=== PATIENT | female | born 1950 | race Caucasian/White ===

== ENCOUNTER 2017-06-15 08:00 | Outpatient (CLI) | payer MEDICARE ==
[2017-06-15 13:09] LABS: BASOPHILS % (AUTO) 0.5 %; EOSINOPHILS # (AUTO) 0.1 10^3/uL (0.0-0.7); EOSINOPHILS % (AUTO) 2.6 %; HCT - HEMATOCRIT 41.7 % (37.0-47.0); HGB - HEMOGLOBIN 14.1 g/dL (12.0-16.0); LYMPHOCYTES % (AUTO) 39.8 %; MEAN CORPUSCULAR HEMOGLOBIN 31.8 pg (27.0-31.0); MEAN CORPUSCULAR HGB CONC 33.9 g/dL (32.0-36.0); MEAN CORPUSCULAR VOLUME 93.9 fL (81.0-99.0); MEAN PLATELET VOLUME 7.9 fL (7.9-10.8); MONOCYTES # (AUTO) 0.4 10^3/uL (0.0-1.0); NEUTROPHILS # (AUTO) 2.4 10^3/uL (1.5-6.6); NEUTROPHILS % (AUTO) 49.1 %; NUCLEATED RED BLOOD CELLS AUTO 0.1 /100WBC; RED BLOOD COUNT 4.45 10^6/uL (4.20-5.40); RED CELL DISTRIBUTION WIDTH 13.3 % (12.0-15.0)
[2017-06-15 13:38] LABS: ALBUMIN/GLOBULIN RATIO 1.8 (1.0-2.2); BILIRUBIN,TOTAL 1.6 mg/dL (0.2-1.0); BUN - BLOOD UREA NITROGEN 12 mg/dL (6-20); CALCIUM 9.2 mg/dL (8.5-10.3); CARBON DIOXIDE - CO2 31 mmol/L (21-32); CHLORIDE 96 mmol/L (101-111); CHOL/HDL RATIO 2.1 (<4.4); CHOLESTEROL 190 mg/dL; CREATININE 0.6 mg/dL (0.4-1.0); GFR - MDRD 99 (>89); GLUCOSE 87 mg/dL (70-100); HDL CHOLESTEROL 89 mg/dL; LDL/HDL RATIO 0.9 (<4.4); POTASSIUM 3.6 mmol/L (3.5-5.0); SODIUM 134 mmol/L (135-145); TOTAL PROTEIN 7.1 g/dL (6.7-8.2); TRIGLYCERIDES 84 mg/dL; VLDL CHOLESTEROL 17 mg/dL
== END 2017-06-15 08:01 | disposition home or self-care (01) ==
LOC: LAB.R 08:00
PROVIDERS: ATTEND Physician Assistant Medical
DX: Z00.00 Encounter for general adult medical examination without abnormal findings (principal); R73.9 Hyperglycemia, unspecified; E78.2 Mixed hyperlipidemia; Z72.89 Other problems related to lifestyle; Z79.899 Other long term (current) drug therapy
CPT/HCPCS: 80053; 80061; 84443; 85025; 86803

== ENCOUNTER 2017-06-28 10:19 | Outpatient (CLI) | payer MEDICARE ==
--- NOTE | 2017-06-29 18:41 | Mammography Report ---
DIGITAL SCREENING MAMMOGRAM: 06/28/2017 CLINICAL INDICATION: A 67-year-old for screening. COMPARISON: 03/2015, 05/2013, 12/2011, 12/2010, 11/2008, 11/2007. TECHNIQUE: Routine CC and MLO projections were obtained of the breasts. FINDINGS: The breasts demonstrate scattered fibroglandular densities bilaterally. Coarse and puncta te, typically benign calcifications are present. No suspicious masses, clustered microcalcifications , or regions of architectural distortion are identified. IMPRESSION: BENIGN FINDINGS. RECOMMENDATION: Routine annual screening unless otherwise clinically indicated. BI-RADS category 2, benign findings. STANDARD QUALIFYING STATEMENTS 1. This examination was reviewed with the aid of Computer-Aided Detection (CAD). 2. A negative or benign imaging report should not delay biopsy if clinically suspicious findings are present. Consider surgical consultation if warranted. More than 5% of cancers are not identified by i maging. 3. Dense breasts may obscure an underlying neoplasm. JOB #: [id number] EXT JOB #:[id number]
== END 2017-06-28 10:20 | disposition home or self-care (01) ==
LOC: DI 10:19
PROVIDERS: ATTEND Physician Assistant Medical
DX: Z12.31 Encounter for screening mammogram for malignant neoplasm of breast (principal)
CPT/HCPCS: 77067

== ENCOUNTER 2017-12-17 22:36 | Emergency (ER) | payer MEDICARE ==
[2017-12-17] MEDS ORDERED: SODIUM CHLORIDE 0.9% 1,000 ML IV ONE (23:08)
[2017-12-17 23:27] LABS: BASOPHILS # (AUTO) 0.1 10^3/uL (0.0-0.1); BASOPHILS % (AUTO) 0.8 %; EOSINOPHILS % (AUTO) 0.2 %; HGB - HEMOGLOBIN 15.3 g/dL (12.0-16.0); LYMPHOCYTES # (AUTO) 1.7 10^3/uL (1.5-3.5); LYMPHOCYTES % (AUTO) 14.2 %; MEAN CORPUSCULAR HEMOGLOBIN 31.8 pg (27.0-31.0); MEAN CORPUSCULAR HGB CONC 34.3 g/dL (32.0-36.0); MEAN CORPUSCULAR VOLUME 92.6 fL (81.0-99.0); MEAN PLATELET VOLUME 6.9 fL (7.9-10.8); MONOCYTES # (AUTO) 0.7 10^3/uL (0.0-1.0); MONOCYTES % (AUTO) 5.7 %; NEUTROPHILS # (AUTO) 9.2 10^3/uL (1.5-6.6); NEUTROPHILS % (AUTO) 79.1 %; PLT - PLATELET COUNT 275 10^3/uL (130-450); RED BLOOD COUNT 4.82 10^6/uL (4.20-5.40); WHITE BLOOD COUNT 11.7 x10^3/uL (4.8-10.8)
[2017-12-17 23:38] LABS: ALBUMIN 4.4 g/dL (3.2-5.5); ALBUMIN/GLOBULIN RATIO 1.7 (1.0-2.2); BILIRUBIN,TOTAL 1.9 mg/dL (0.2-1.0); CALCIUM 9.3 mg/dL (8.5-10.3); CREATININE 0.6 mg/dL (0.4-1.0)
[2017-12-17] MEDS ORDERED: POTASSIUM CHLORIDE 20 MEQ TABLET PO STA (23:55)
--- NOTE | 2017-12-18 00:04 | ED Physician Documentation ---
PD HPI GI BLEED - Stated complaint Stated Complaint: FEMALE - Chief complaint Chief Complaint: Abd Pain - History obtained from History obtained from: Patient, Family (spouse) - History of Present Illness Timing - onset: How many hours ago (1) Associated symptoms: BRBPR Similar symptoms before: Has not had sx before - Additional information Additional information: The patient is a 67-year-old female who presents with bright red blood per rectum. She first noticed it about 1 hour prior to arrival with she had pink tinged stool after dinner. She then had an episode of bright red blood dripping into the commode. She denies any associated abdominal or rectal pain. She denies lightheadedness or fever. She has no history of similar symptoms in the past. Review of her medical record reveals resection of 2 benign rectal polyps in 2016. Review of Systems Constitutional: denies: Fever Nose: denies: Congestion Throat: denies: Sore throat Cardiac: denies: Chest pain / pressure Respiratory: denies: Dyspnea, Cough GI: reports: Bloody / black stool. denies: Abdominal Pain, Nausea, Vomiting : denies: Dysuria Skin: denies: Rash Musculoskeletal: denies: Back pain Neurologic: denies: Headache PD PAST MEDICAL HISTORY - Past Medical History Past Medical History: Yes Cardiovascular: Hypertension, High cholesterol Endocrine/Autoimmune: None GI: Other (Rectal polyps.) Other Past Medical History: Meniere disease - Past Surgical History Past Surgical History: No - Present Medications Home Medications: Ambulatory Orders Medication Instructions Recorded Confirmed Aspirin [Aspir 81] 81 mg PO DAILY 06/09/13 09/28/16 Calcium [Calcio Giorgi] 500 mg PO DAILY 06/09/13 09/29/16 Hydrochlorothiazide 25 mg PO DAILY 06/09/13 09/29/16 Ubidecarenone [Co Q-10] 10 mg PO DAILY 06/09/13 09/29/16 Atorvastatin Calcium [Lipitor] 40 mg PO DAILY 09/28/16 09/29/16 Hydrocortisone Acetate [Anucort-Hc] 25 mg RC BID PRN #10 supp.rect 12/18/17 Potassium Chloride 10 meq PO DAILY #20 tablet.er 12/18/17 - Allergies Allergies/Adverse Reactions: Allergies Allergy/AdvReac Type Severity Reaction Status Date / Time Sulfa (Sulfonamide Allergy Intermediate Rash Verified 12/17/17 22:44 Antibiotics) - Social History Does the pt smoke?: No Smoking Status: Never smoker Does the pt drink ETOH?: No Does the pt have substance abuse?: No - POLST Patient has POLST: No PD ED PE NORMAL - Vitals Vital signs reviewed: Yes (Mild hypertension initially.) - General General: Alert and oriented X 3, Well developed/nourished - HEENT HEENT: Atraumatic, Moist mucous membranes, Pharynx benign - Neck Neck: No adenopathy, No JVD - Cardiac Cardiac: RRR, No murmur - Respiratory Respiratory: No respiratory distress, Clear bilaterally - Abdomen Abdomen: Soft, Non tender, No organomegaly - Rectal Rectal: Other (Bright red blood on examining finger, without stool. No anal tenderness and no external hemorrhoid.) - Back Back: No CVA TTP - Derm Derm: No rash - Extremities Extremities: No edema, No calf tenderness / cord - Neuro Neuro: Alert and oriented X 3, No motor deficit, Normal speech PD ED PE EXPANDED - Rectal Rectal: Heme Occult Pos - QC +, Normal Tone Results - Vitals Vitals: Vital Signs - 24 hr 12/17/17 12/18/17 12/18/17 22:39 00:30 00:31 Temperature 36.2 C L Heart Rate 106 H 110 H 92 Respiratory 18 18 16 Rate Blood Pressure 144/92 H 165/87 H 131/75 H O2 Saturation 97 96 Oxygen O2 Source Room air - Labs Labs: Laboratory Tests 12/17/17 12/17/17 23:15 23:15 WBC 11.7 H RBC 4.82 Hgb 15.3 Hct 44.6 MCV 92.6 MCH 31.8 H MCHC 34.3 RDW 13.0 Plt Count 275 MPV 6.9 L Neut # 9.2 H Lymph # 1.7 [place] # 0.7 Eos # 0.0 Baso # 0.1 Absolute Nucleated RBC 0.00 Nucleated RBC % 0.0 Sodium 130 L Potassium 2.8 L Chloride 94 L Carbon Dioxide 24 Anion Gap 12.0 BUN 13 Creatinine 0.6 Estimated GFR (MDRD) 99 Glucose 118 H Calcium 9.3 Total Bilirubin 1.9 H AST 23 ALT 24 Alkaline Phosphatase 85 Total Protein 7.0 Albumin 4.4 Globulin 2.6 Albumin/Globulin Ratio 1.7 Lipase 29 PD MEDICAL DECISION MAKING - ED course Complexity details: reviewed old records, reviewed results, re-evaluated patient , considered differential, d/w patient, d/w family ED course: The patient's presentation is significant for bright red blood per rectum, most likely caused by internal hemorrhoid. The possibility of recurrent rectal polyp is a remaining consideration. Her presentation does not suggest diverticular hemorrhage or an upper GI bleed. Her hemoglobin and hematocrit are normal at 15.3 and 44.6. In addition her chemistry panel reveals hypokalemia with a potassium of 2.8. This is likely caused by her diuretic medication, hydrochlorothiazide. Treatment in the emergency department included administration of normal saline IV, and supplemental potassium, 20 mEq orally. She is being discharged with a prescription for Anusol HC and for supplemental potassium. I discussed with her and her the diagnosis, the importance of outpatient follow-up, as well as potentially worrisome signs or symptoms that should prompt reevaluation in the emergency department. Departure - Departure Disposition: 01 Home, Self Care Clinical Impression: Internal hemorrhoid, bleeding, Hypokalemia Condition: Stable Instructions: ED Hemorrhoids Follow-Up: Bhavana Jimenes PA-C [Primary Care Provider] - Prescriptions: Hydrocortisone Acetate [Anucort-Hc] 25 mg RC BID PRN #10 supp.rect PRN Reason: Rectal Discomfort Potassium Chloride 10 meq PO DAILY #20 tablet.er Comments: Use stool softener, such as milk of magnesia 30 mL daily for the next week. You can use Anusol as prescribed if needed for rectal discomfort. Take supplemental potassium daily as prescribed. Follow up with your primary physician within 1-2 weeks. Call to schedule an appointment. Return to the emergency department if you develop increasing rectal bleeding, lightheadedness, abdominal pain, or otherwise worsening symptoms. Discharge Date/Time: 12/18/17 00:25
[2017-12-18 00:31] VITALS: BP 131/75
== END 2017-12-18 00:25 | disposition home or self-care (01) ==
LOC: ED 22:36
DX: K64.8 Other hemorrhoids (principal); E87.6 Hypokalemia; I10 Essential (primary) hypertension; E78.00 Pure hypercholesterolemia, unspecified
CPT/HCPCS: 36415; 80053; 83690; 85025; 99283; A9270

== ENCOUNTER 2018-01-01 08:00 | Outpatient (CLI) | payer MEDICARE ==
[2018-01-01 15:08] LABS: CREATININE 0.5 mg/dL (0.4-1.0)
== END 2018-01-01 08:01 | disposition home or self-care (01) ==
LOC: LAB.R 08:00
PROVIDERS: ATTEND Internal Medicine
DX: E87.6 Hypokalemia (principal); Z79.899 Other long term (current) drug therapy
CPT/HCPCS: 80048

== ENCOUNTER 2018-02-12 08:00 | Outpatient (CLI) | payer MEDICARE ==
[2018-02-12 13:19] LABS: CALCIUM 9.1 mg/dL (8.5-10.3); CREATININE 0.5 mg/dL (0.4-1.0)
== END 2018-02-12 08:01 ==
LOC: LAB.R 08:00
PROVIDERS: ATTEND Physician Assistant Medical
DX: E87.6 Hypokalemia (principal)
CPT/HCPCS: 80048

== ENCOUNTER 2018-02-26 09:05 | Outpatient (CLI) | payer MEDICARE ==
[2018-02-26 15:37] LABS: CALCIUM 8.9 mg/dL (8.5-10.3)
[2018-02-26 15:44] LABS: CREATININE 0.6 mg/dL (0.4-1.0)
== END 2018-02-26 09:06 | disposition home or self-care (01) ==
LOC: LAB.R 09:05
PROVIDERS: ATTEND Physician Assistant Medical
DX: E87.6 Hypokalemia (principal); Z79.899 Other long term (current) drug therapy
CPT/HCPCS: 80048

== ENCOUNTER 2018-03-20 08:00 | Outpatient (CLI) | payer MEDICARE ==
[2018-03-20 15:36] LABS: CALCIUM 8.8 mg/dL (8.5-10.3); CREATININE 0.5 mg/dL (0.4-1.0)
== END 2018-03-20 08:01 ==
LOC: LAB.R 08:00
PROVIDERS: ATTEND Physician Assistant Medical
DX: E87.6 Hypokalemia (principal); E87.1 Hypo-osmolality and hyponatremia; Z79.899 Other long term (current) drug therapy
CPT/HCPCS: 80048

== ENCOUNTER 2018-04-25 14:30 | Outpatient (CLI) | payer MEDICARE | END 2018-04-25 14:31 | disposition home or self-care (01) | LOC: LAB.R 14:30 | PROVIDERS: ATTEND Physician Assistant Medical | DX: N30.00 Acute cystitis without hematuria (principal) | CPT/HCPCS: 87086 ==

== ENCOUNTER 2018-06-19 08:07 | Outpatient (CLI) | payer MEDICARE ==
[2018-06-19 13:48] LABS: BASOPHILS % (AUTO) 0.7 %; EOSINOPHILS # (AUTO) 0.1 10^3/uL (0.0-0.7); EOSINOPHILS % (AUTO) 2.5 %; HGB - HEMOGLOBIN 13.9 g/dL (12.0-16.0); LYMPHOCYTES # (AUTO) 1.6 10^3/uL (1.5-3.5); LYMPHOCYTES % (AUTO) 34.4 %; MEAN CORPUSCULAR HEMOGLOBIN 32.3 pg (27.0-31.0); MEAN CORPUSCULAR HGB CONC 33.9 g/dL (32.0-36.0); MEAN CORPUSCULAR VOLUME 95.2 fL (81.0-99.0); MEAN PLATELET VOLUME 7.7 fL (7.9-10.8); MONOCYTES # (AUTO) 0.4 10^3/uL (0.0-1.0); MONOCYTES % (AUTO) 8.6 %; NEUTROPHILS # (AUTO) 2.5 10^3/uL (1.5-6.6); NEUTROPHILS % (AUTO) 53.8 %; PLT - PLATELET COUNT 271 10^3/uL (130-450); RED BLOOD COUNT 4.31 10^6/uL (4.20-5.40); RED CELL DISTRIBUTION WIDTH 12.7 % (12.0-15.0); WHITE BLOOD COUNT 4.7 x10^3/uL (4.8-10.8)
[2018-06-19 14:06] LABS: ALBUMIN 4.3 g/dL (3.2-5.5); ALBUMIN/GLOBULIN RATIO 1.7 (1.0-2.2); ALKALINE PHOSPHATASE 72 IU/L (42-121); ALT ALANINE AMINOTRANSFERASE 20 IU/L (10-60); AST ASPARTATE AMINOTRANSFERASE 21 IU/L (10-42); BUN - BLOOD UREA NITROGEN 13 mg/dL (6-20); CALCIUM 9.3 mg/dL (8.5-10.3); CARBON DIOXIDE - CO2 30 mmol/L (21-32); CHLORIDE 98 mmol/L (101-111); CHOL/HDL RATIO 2.2 (<4.4); CHOLESTEROL 182 mg/dL; CREATININE 0.6 mg/dL (0.4-1.0); GFR - MDRD 99 (>89); GLUCOSE 90 mg/dL (70-100); HDL CHOLESTEROL 84 mg/dL; LDL CHOLESTEROL,CALCULATED 82 mg/dL; SODIUM 135 mmol/L (135-145); TOTAL PROTEIN 6.9 g/dL (6.7-8.2); VLDL CHOLESTEROL 16 mg/dL
== END 2018-06-19 08:08 ==
LOC: LAB.R 08:07
PROVIDERS: ATTEND Physician Assistant Medical
DX: N30.00 Acute cystitis without hematuria (principal); Z79.899 Other long term (current) drug therapy; E78.2 Mixed hyperlipidemia; I10 Essential (primary) hypertension; M85.80 Other specified disorders of bone density and structure, unspecified site; K59.09 Other constipation
CPT/HCPCS: 80053; 80061; 82306; 83721; 84443; 85025

== ENCOUNTER 2018-07-06 08:53 | Outpatient (CLI) | payer MEDICARE ==
--- NOTE | 2018-07-06 12:27 | Ultrasound Report ---
Reason: POSTMENOPAUSA, ELEVATED TOTAL BILIRUBIN Procedure Date: 07/06/2018 Accession Number: [id number] / [id number] Procedure: US - Abdomen Limited CPT Code: FULL RESULT: EXAM: ABDOMEN ULTRASOUND LIMITED, RUQ EXAM DATE: 07/06/2018 10:20 AM. CLINICAL HISTORY: POSTMENOPAUSAL, ELEVATED TOTAL BILIRUBIN. COMPARISON: None. TECHNIQUE: Real-time scanning was performed with static images obtained. FINDINGS: Liver: Normal in size and echotexture. 13.4 cm. Main portal vein flow: Hepatopetal. Gallbladder: No stones, wall thickening, or sonographic Yang's sign. Biliary System: CBD measures 5.2 mm. No intrahepatic or extrahepatic ductal dilatation. Free fluid: None. Right kidney: 10.4 cm longitudinally. No hydronephrosis. Other: Question lymph node/mass superior to the right kidney between the spine and liver measuring approximately 2.8 x 2.1 x 2.8 cm. IMPRESSION: No cholelithiasis or cholecystitis. Question prominent lymph node superior to the right kidney between the spine and liver. Consider further evaluation by abdomen CT with contrast. RADIA
--- NOTE | 2018-07-10 10:37 | DEXA Report ---
Reason: POSTMENOPAUSA, ELEVATED TOTAL BILIRUBIN Procedure Date: 07/06/2018 Accession Number: [id number] / [id number] Procedure: DEX - Dexa Spine and/or Hip CPT Code: FULL RESULT: EXAM: Dexa Spine and/or Hip DATE: 07/06/2018 9:18 AM CLINICAL HISTORY: POSTMENOPAUSAL, ELEVATED TOTAL BILIRUBIN TECHNIQUE: Dual energy x-ray absorptiometry (DXA) was performed on a [employer]gen[employer] System. Regions measured are the AP Spine, femoral neck, and if needed forearm. COMPARISON: 07/07/2016 DEXA In accordance with the International Society for Clinical Densitometry (ISCD) guidelines, data from previous exams may be reanalyzed using current recommendations and techniques. This is done to allow a more accurate basis for comparison with the current study. FINDINGS: The data for the lumbar spine is as follows: BMD (g/cm/cm) T-SCORE Z-SCORE REGION L1 0.963 -1.4 0.5 L2 1.007 -1.6 0.3 L3 1.140 -0.5 1.4 L4 TOTAL 1.041 -1.1 0.8 NOTE: All evaluable vertebrae are used for classification The data for the hip is as follows: BMD (g/cm/cm) T-SCORE Z-SCORE REGION Neck 0.870 -1.2 0.6 TOTAL 0.849 -1.3 0.4 NOTE: The femoral neck or total proximal femur, whichever is lowest, is used for classification. DXA RESULTS SUMMARY: Spine SCAN DATE AGE BMD CHANGE VS CHANGE VS PREVIOUS PREVIOUS % 07[birth year]06/2018 [age] 1.041 0.008 0.8 07/07/2016 66.1 1.033 * Denotes significant change at the 95% confidence level. Denotes dissimilar scan types or analysis methods. DXA RESULTS SUMMARY: Hip SCAN DATE AGE BMD CHANGE VS CHANGE VS PREVIOUS PREVIOUS % [birth year]06/2018 68.1 0.849 -0.002 -0.2 07/07/2016 66.1 0.851 * Denotes significant change at the 95% confidence level. Denotes dissimilar scan types or analysis methods. IMPRESSION: THE WHO CLASSIFICATION BASED ON THE INTERNATIONAL REFERENCE STANDARD IS OSTEOPENIA. THE FRACTURE RISK IS INCREASED. RECOMMENDATION: Patients with diagnosis of osteoporosis or osteopenia should have regular bone mineral density assessment. For those eligible for Medicare, routine testing is allowed once every 2 years. Testing frequency can be increased for patients who have rapidly progressing disease or for those who are receiving medical therapy to restore bone mass. COMMENT: World Health Organization (WHO) definitions for osteoporosis and osteopenia: NORMAL BMD: T-score at -1.0 or higher, fracture risk is low OSTEOPENIA BMD: T-score between -1.0 and -2.5, fracture risk is increased. OSTEOPOROSIS BMD: T-score at -2.5 or lower, fracture risk is high. National Osteoporosis Foundation recommends: 1. Obtain adequate dietary calcium (at least 1200 mg per day) and vitamin D (400-800 international units per day). 2. Participate, as appropriate, in regular weightbearing and muscle-strengthening exercise. 3. Avoid tobacco use and reduce alcohol and caffeine intake. 4. For more detailed information see the website at www.NOF.org.
== END 2018-07-06 08:54 | disposition home or self-care (01) ==
LOC: DI 08:53
PROVIDERS: ATTEND Physician Assistant Medical
DX: M85.89 Other specified disorders of bone density and structure, multiple sites (principal); R17 Unspecified jaundice
CPT/HCPCS: 76705; 77080

== ENCOUNTER 2018-07-11 10:45 | Outpatient (CLI) | payer MEDICARE ==
[2018-07-11] MEDS ORDERED: IOPAMIDOL-300 50 ML VIAL ONE (10:55)
[2018-07-11] MEDS ORDERED: IOPAMIDOL-300 100 ML VIAL ONE (10:55)
[2018-07-11] MEDS ORDERED: IOPAMIDOL-300 100 ML VIAL IVP ONE (12:18)
[2018-07-11] MEDS ORDERED: IOPAMIDOL-300 50 ML VIAL PO ONE (12:18)
--- NOTE | 2018-07-11 12:59 | CT Report ---
Reason: ABNORMAL ABDOMINAL ULTRASOUND,ELEVATED TOTAL BILIR Procedure Date: 07/11/2018 Accession Number: [id number] / [id number] Procedure: CT - Abdomen/Pelvis W/ CPT Code: FULL RESULT: EXAM: CT ABDOMEN AND PELVIS EXAM DATE: 07/11/2018 12:16 PM. CLINICAL HISTORY: ABNORMAL ABDOMINAL ULTRASOUND,ELEVATED TOTAL BILI. COMPARISONS: None. TECHNIQUE: Routine helical CT imaging was performed through the abdomen and pelvis. IV contrast: ISOVUE 300 100mL. Enteric contrast: No. Reconstructions: Coronal and sagittal. In accordance with CT protocol optimization, one or more of the following dose reduction techniques were utilized for this exam: automated exposure control, adjustment of mA and/or KV based on patient size, or use of iterative reconstructive technique. FINDINGS: Lung Bases: Unremarkable. Liver: Normal contour. No masses. Gallbladder/Bile Ducts: Unremarkable. Spleen: Normal. Splenule is noted. Pancreas: Normal. Adrenal Glands: Right adrenal nodule 2.1 x 1.8 cm axially. Kidneys: Normal. No masses or hydronephrosis. Peritoneal Cavity/Bowel: Normal. No free fluid, free air or adenopathy. No masses or acute inflammatory process. The appendix is mostly visualized and has a normal CT appearance. Pelvic Organs: Uterine calcifications, likely calcified fibroid.. The bladder and visualized pelvic organs appear otherwise within normal limits. Vasculature: No aneurysms or other significant abnormality. Bones: No significant abnormality. Other: None. IMPRESSION: Right adrenal nodule likely accounts for the abnormal ultrasound findings. It is incompletely characterized. Recommend adrenal protocol CT. Note to the scanning biotechnologist: Begin with noncontrast adrenal or abdomen CT, with radiologist call regarding decision for additional adrenal protocol. RADIA
== END 2018-07-11 10:46 | disposition home or self-care (01) ==
LOC: DI 10:45
PROVIDERS: ATTEND Physician Assistant Medical
DX: E27.9 Disorder of adrenal gland, unspecified (principal)
CPT/HCPCS: 74177; Q9967

== ENCOUNTER 2018-07-17 07:40 | Outpatient (CLI) | payer MEDICARE ==
[2018-07-17] MEDS ORDERED: IOPAMIDOL-300 100 ML VIAL ONE (08:21)
[2018-07-17] MEDS ORDERED: IOPAMIDOL-300 100 ML VIAL IVP ONE (08:46)
--- NOTE | 2018-07-17 14:33 | CT Report ---
Reason: ADRENAL NODULE ON CT, ABN ABD USD Procedure Date: 07/17/2018 Accession Number: [id number] / [id number] Procedure: CT - Abdomen W/WO CPT Code: FULL RESULT: EXAM: CT ABDOMEN WITHOUT AND WITH CONTRAST EXAM DATE: 07/17/2018 08:30 AM. HISTORY: Adrenal nodule on CT. Abnormal abdominal ultrasound. COMPARISON: ABDOMEN/PELVIS W/ 07/11/2018 12:11 PM. TECHNIQUE: Routine helical CT imaging was performed through the abdomen before and after administration of IV contrast: 100 mL Isovue-300. Enteric contrast: No. Reconstruction: Coronal and sagittal. In accordance with CT protocol optimization, one or more of the following dose reduction techniques were utilized for this exam: automated exposure control, adjustment of mA and/or KV based on patient size, or use of iterative reconstructive technique. FINDINGS: Lung Bases: Unremarkable. Liver: Normal. No masses. Gallbladder/Bile Ducts: Unremarkable. Spleen: Normal. Pancreas: Normal. No masses or ductal obstruction. Adrenal Glands: The right adrenal gland nodule demonstrates indeterminate washout criteria by relative and absolute washout formulas. Scant calcification and the suggestion of fat suggest the possibility of adrenal myelolipoma, but the appearance is not typical. The lesion overall remains indeterminate. Left adrenal gland is normal. Kidneys: Normal. No masses or hydronephrosis. Peritoneal Cavity/Bowel: Normal. No free fluid, free air or adenopathy. No masses or acute inflammatory process. Vasculature: No aneurysms or other significant abnormality. Bones: No significant abnormality. Other: None. IMPRESSION: Indeterminate right adrenal mass which does not meet washout criteria for lipid poor adrenal adenoma. Given the suggestion of microscopic fat without typical imaging features of myelolipoma, consider definitive characterization by MRI with in and out of phase imaging. Alternatively, if the patient has no known malignancy or risk factors for malignancy, interval imaging for stability 6 months from now and again every 12 months for a total duration of 2 years to demonstrate stability is also reasonable. RADIA
== END 2018-07-17 07:41 | disposition home or self-care (01) ==
LOC: DI 07:40
PROVIDERS: ATTEND Physician Assistant Medical
DX: E27.9 Disorder of adrenal gland, unspecified (principal)
CPT/HCPCS: 74170; Q9967

== ENCOUNTER 2018-08-10 09:11 | Outpatient (CLI) | payer MEDICARE ==
--- NOTE | 2018-08-10 14:17 | MRI Report ---
Reason: ADRENAL NODULE ON CT, ABN ABD US, ELEVATED TOTAL B Procedure Date: 08/10/2018 Accession Number: [id number] / [id number] Procedure: MRI - Abdomen W/O CPT Code: FULL RESULT: EXAM: MR ABDOMEN WITHOUT CONTRAST (MR ADRENALS) EXAM DATE: 08/10/2018 10:43 AM. CLINICAL HISTORY: ADRENAL NODULE ON CT, ABN ABD US, ELEVATED TOTAL B. COMPARISON: 07/17/2018. TECHNIQUE: Multiplanar breath-hold T1 and T2 sequences obtained through the adrenals and abdomen on an MR scanner. Thin-section, in-phase and yvk-sa-[id number] sequence obtained through the adrenal glands. No intravenous contrast given. FINDINGS: Lung Bases: Unremarkable. Liver: The liver has normal size, morphology and signal. No evidence of mass or biliary dilatation. Gallbladder: The gallbladder is partially distended and appears normal with no wall thickening or stone. Pancreas: The pancreas appears normal with no mass or ductal dilatation. Spleen: The spleen appears normal. Kidneys: The kidneys appear normal with no mass or hydronephrosis. There are no cysts in the kidneys. Adrenals: There is a 1.9 x 1.5 cm nodule in the right adrenal gland. This shows heterogeneous signal intensity on the T2-weighted sequences, intermediate signal intensity on T1-weighted sequences. There is significant signal drop on [id number] sequence consistent with an adenoma. Bowel: The small bowel and colon appear normal with no inflammation or obstruction. Retroperitoneum: The retroperitoneal structures appear normal with no mass or lymphadenopathy. IMPRESSION: The right adrenal nodule contains intralesional fat consistent with a benign adenoma. RADIA
== END 2018-08-10 09:12 | disposition home or self-care (01) ==
LOC: DI 09:11
PROVIDERS: ATTEND Physician Assistant Medical
DX: E27.8 Other specified disorders of adrenal gland (principal); R93.5 Abnormal findings on diagnostic imaging of other abdominal regions, including retroperitoneum; E80.7 Disorder of bilirubin metabolism, unspecified
CPT/HCPCS: 74181

== ENCOUNTER 2019-10-03 08:55 | Outpatient (CLI) | payer MEDICARE ==
[2019-10-03 09:40] LABS: BASOPHILS % (AUTO) 0.7 %; EOSINOPHILS # (AUTO) 0.2 10^3/uL (0.0-0.7); EOSINOPHILS % (AUTO) 3.7 %; HGB - HEMOGLOBIN 14.2 g/dL (12.0-16.0); LYMPHOCYTES # (AUTO) 1.5 10^3/uL (1.5-3.5); LYMPHOCYTES % (AUTO) 32.4 %; MEAN CORPUSCULAR HEMOGLOBIN 31.6 pg (27.0-31.0); MEAN CORPUSCULAR HGB CONC 33.3 g/dL (32.0-36.0); MEAN CORPUSCULAR VOLUME 95.1 fL (81.0-99.0); MEAN PLATELET VOLUME 8.8 fL (7.9-10.8); MONOCYTES # (AUTO) 0.6 10^3/uL (0.0-1.0); NEUTROPHILS # (AUTO) 2.3 10^3/uL (1.5-6.6); NEUTROPHILS % (AUTO) 50.8 %; PLT - PLATELET COUNT 258 10^3/uL (130-450); RED BLOOD COUNT 4.49 10^6/uL (4.20-5.40); RED CELL DISTRIBUTION WIDTH 12.2 % (12.0-15.0); WHITE BLOOD COUNT 4.6 x10^3/uL (4.8-10.8)
[2019-10-03 10:07] LABS: ALBUMIN 4.4 g/dL (3.2-5.5); ALBUMIN/GLOBULIN RATIO 1.6 (1.0-2.2); ALKALINE PHOSPHATASE 85 IU/L (42-121); ALT ALANINE AMINOTRANSFERASE 21 IU/L (10-60); AST ASPARTATE AMINOTRANSFERASE 21 IU/L (10-42); BILIRUBIN,TOTAL 1.4 mg/dL (0.2-1.0); BUN - BLOOD UREA NITROGEN 11 mg/dL (6-20); CALCIUM 9.4 mg/dL (8.5-10.3); CARBON DIOXIDE - CO2 31 mmol/L (21-32); CHLORIDE 100 mmol/L (101-111); CHOL/HDL RATIO 3.1 (<4.4); CHOLESTEROL 156 mg/dL; CREATININE 0.7 mg/dL (0.4-1.0); GFR - MDRD 82 (>89); GLUCOSE 99 mg/dL (70-100); HDL CHOLESTEROL 50 mg/dL; LDL CHOLESTEROL,CALCULATED 79 mg/dL; LDL/HDL RATIO 1.6 (<4.4); SODIUM 139 mmol/L (135-145); TOTAL PROTEIN 7.1 g/dL (6.7-8.2); VLDL CHOLESTEROL 27 mg/dL
[2019-10-03 10:35] LABS: THYROID STIMULATING HORMONE 2.13 uIU/mL (0.34-5.60)
[2019-10-03 10:37] LABS: FREE T4 (FREE THYROXINE) 0.84 ng/dL (0.58-1.64)
== END 2019-10-03 08:56 | disposition home or self-care (01) ==
LOC: LAB 08:55
PROVIDERS: ATTEND Family Medicine
DX: K21.9 Gastro-esophageal reflux disease without esophagitis (principal); K59.09 Other constipation; H81.09 Meniere's disease, unspecified ear; E78.2 Mixed hyperlipidemia; I10 Essential (primary) hypertension
CPT/HCPCS: 36415; 80053; 80061; 83721; 84439; 84443; 84481; 85025

== ENCOUNTER 2019-10-09 08:00 | Outpatient (CLI) | payer MEDICARE | END 2019-10-09 23:59 | disposition home or self-care (01) | LOC: LAB.R 08:00 | PROVIDERS: ATTEND Family Medicine | DX: R30.0 Dysuria (principal) | CPT/HCPCS: 87086 ==

== ENCOUNTER 2019-11-01 13:06 | Outpatient (CLI) | payer MEDICARE ==
--- NOTE | 2019-11-06 13:02 | Mammography Report ---
Reason: ROUTINE MAMMO Procedure Date: 11/01/2019 Accession Number: [id number] / [id number] Procedure: KIM - Screening Mammo w/Uriel CPT Code: Final Report FULL RESULT: EXAM: Screening Mammo w/Uriel DATE: 11/01/2019 1:39 PM CLINICAL HISTORY: The patient is an asymptomatic 69-year-old female. No reported personal nor family history breast cancer. TECHNIQUE: (B) - Bilateral CC and MLO views were obtained. COMPARISON: None PARENCHYMAL PATTERN: (A) - The breasts demonstrate scattered fibroglandular densities bilaterally. FINDINGS: Technical limitations. Suboptimal right breast positioning (CC). Motion artifact left breast (MLO). IMPRESSION: Incomplete examination. BI-RADS category 0. RECOMMENDATION: Bilateral technical repeat. BI-RADS CATEGORY: (0) - Incomplete Examination - need additional evaluation. STANDARD QUALIFYING STATEMENTS: A negative or benign imaging report should not preclude biopsy if clinically suspicious findings are present. Dense breasts may obscure an underlying neoplasm. This examination was reviewed with the aid of 3D breast imaging (tomosynthesis).
== END 2019-11-01 13:07 | disposition home or self-care (01) ==
LOC: DI 13:06
DX: Z12.31 Encounter for screening mammogram for malignant neoplasm of breast (principal)
CPT/HCPCS: 77063; 77067

== ENCOUNTER 2019-12-04 10:25 | Outpatient (CLI) | payer MEDICARE ==
--- NOTE | 2019-12-04 12:45 | Mammography Report ---
Reason: TECH REPEAT - NO CHARGE Procedure Date: 12/04/2019 Accession Number: [id number] / [id number] Procedure: KIM - Screening Mammo w/Uriel CPT Code: Final Report FULL RESULT: EXAM: Screening Mammo w/Uriel DATE: 12/04/2019 11:23 AM CLINICAL HISTORY: Routine screening. Technical repeat. TECHNIQUE: (B) - Bilateral CC and MLO views were obtained. COMPARISON: 11/01/2019, 06/28/2017, 04/17/2015, 06/03/2013, 01/26/2012, 01/18/2011, 01/10/2011 and 12/16/2008. PARENCHYMAL PATTERN: (A) - The breasts demonstrate scattered fibroglandular densities bilaterally. FINDINGS: No significant interval change. There are no suspicious masses, calcifications, or areas of distortion. IMPRESSION: Negative examination. BI-RADS category 1. RECOMMENDATION: (ANNUAL) - Recommend routine annual screening mammography. BI-RADS CATEGORY: (1) - Negative. STANDARD QUALIFYING STATEMENTS: 1. This examination was not reviewed with the aid of Computer-Aided Detection (CAD). 2. A negative or benign imaging report should not preclude biopsy if clinically suspicious findings are present. 3. Dense breasts may obscure an underlying neoplasm. 4. This examination was reviewed with the aid of 3D breast imaging (tomosynthesis).
== END 2019-12-04 10:26 | disposition home or self-care (01) ==
LOC: DI 10:25
DX: Z12.31 Encounter for screening mammogram for malignant neoplasm of breast (principal)
CPT/HCPCS: 77063; 77067

== ENCOUNTER 2020-01-22 09:30 | Outpatient (CLI) | payer MEDICARE | END 2020-01-22 23:59 | disposition home or self-care (01) | LOC: LAB.R 09:30 | PROVIDERS: ATTEND Family Medicine | DX: R30.0 Dysuria (principal) | CPT/HCPCS: 87086; 87181 ==

== ENCOUNTER 2020-06-20 14:12 | Emergency (ER) | payer MEDICARE ==
[2020-06-20 14:25] VITALS: BP 143/67
--- NOTE | 2020-06-20 15:04 | ED Physician Documentation ---
PD HPI LOWER EXT INJURY - Stated complaint Stated Complaint: RT FT INJ - Chief complaint Chief Complaint: Ext Problem - History obtained from History obtained from: Patient, Family - History of Present Illness PD HPI LOW EXT INJURY LOCATION: Right, Foot Type of injury: Blunt / blow Where injury occurred: Home Timing - onset: Today Timing - duration: Minutes Timing - details: Abrupt onset, Still present Improved by: Rest, Immobilization Worsened by: Moving, Palpating Associated symptoms: Swelling, Discolored. No: Weakness, Numbness Contributing factors: No: Anticoagulated Similar symptoms before: Has not had sx before Recently seen: Not recently seen - Additional information Additional information: 70-year-old previously well filled female was with her today when a pallet that was standing on and was dropped it tipped over and landed directly on her right foot. She has pain to the toe and the dorsum of the foot and she is able to bear weight. Review of Systems Constitutional: denies: Fever Eyes: denies: Decreased vision Ears: denies: Ear pain Nose: denies: Congestion Throat: denies: Sore throat Cardiac: denies: Chest pain / pressure Respiratory: denies: Cough GI: denies: Vomiting PD PAST MEDICAL HISTORY - Past Medical History Past Medical History: Yes Cardiovascular: Hypertension, High cholesterol Endocrine/Autoimmune: None GI: Other - Past Surgical History Past Surgical History: No - Present Medications Home Medications: Ambulatory Orders Medication Instructions Recorded Confirmed Aspirin [Aspir 81] 81 mg PO DAILY 06/09/13 09/28/16 Calcium [Calcio Giorgi] 500 mg PO DAILY 06/09/13 09/29/16 Hydrochlorothiazide 25 mg PO DAILY 06/09/13 09/29/16 Ubidecarenone [Co Q-10] 10 mg PO DAILY 06/09/13 09/29/16 Atorvastatin Calcium [Lipitor] 40 mg PO DAILY 09/28/16 09/29/16 Hydrocortisone Acetate [Anucort-Hc] 25 mg RC BID PRN #10 supp.rect 12/18/17 Potassium Chloride 10 meq PO DAILY #20 tablet.er 12/18/17 - Allergies Allergies/Adverse Reactions: Allergies Allergy/AdvReac Type Severity Reaction Status Date / Time Sulfa (Sulfonamide Allergy Intermediate Rash Verified 12/17/17 22:44 Antibiotics) - Social History Does the pt smoke?: No Smoking Status: Never smoker Does the pt drink ETOH?: No Does the pt have substance abuse?: No - POLST Patient has POLST: No PD ED PE NORMAL - Vitals Vital signs reviewed: Yes (Hypertensive mild) - General General: Alert and oriented X 3, No acute distress, Well developed/nourished - HEENT HEENT: Atraumatic, PERRL, EOMI - Respiratory Respiratory: No respiratory distress - Derm Derm: Normal color, Warm and dry, No rash - Extremities Extremities: No deformity, No edema, Other (There is tenderness and swelling over the midshaft of the first metatarsal on the right foot. There is a tiny subungual hematoma at the proximal edge of the nail of the right great toe there is abrasion over the interphalangeal joint of the right great toe. Distally the neurovascular components ar) - Neuro Neuro: Alert and oriented X 3, parking supervisor 2-12 intact, No motor deficit, No sensory deficit, Normal speech Eye Opening: Spontaneous Motor: Obeys Commands Verbal: Oriented GCS Score: 15 - Psych Psych: Normal mood, Normal affect Results - Vitals Vitals: Vital Signs - 24 hr 06/20/20 14:22 Temperature 36.5 C Heart Rate 73 Respiratory 18 Rate Blood Pressure 143/67 H O2 Saturation 98 Oxygen O2 Source Room air - Rads (name of study) foot Radiology: Prelim report reviewed (Impression: Minimally comminuted, mainly transverse fracture of the distal phalanx.), EMP read indepedently, See rad report PD MEDICAL DECISION MAKING - ED course Complexity details: reviewed results, re-evaluated patient, considered differential, d/w patient, d/w family ED course: 70-year-old female with a fracture to the right great toe is placed into a postop shoe with metatarsal padding. Departure - Departure Disposition: 01 Home, Self Care Clinical Impression: Fracture of right great toe Qualifiers: Encounter type: initial encounter Fracture type: closed Phalanx: distal Fracture alignment: nondisplaced Qualified Code(s): S92.424A - Nondisplaced fracture of distal phalanx of right great toe, initial encounter for closed fracture Condition: Stable Instructions: ED Fx Toe Closed Follow-Up: Pablo Barry MD [Primary Care Provider] - Discharge Date/Time: 06/20/20 15:45
--- NOTE | 2020-06-20 16:03 | XRAY Report ---
PROCEDURE: Foot 3 View RT INDICATIONS: contusion to distal 1st MT and toe TECHNIQUE: 3 views of the foot were acquired. COMPARISON: None available FINDINGS: Bones: Comminuted fracture of the first distal phalanx with mainly transverse component. No suspiciou s bony lesions. Soft tissues: No tibiotalar joint effusion. Achilles tendon appears normal. IMPRESSION: Minimally comminuted, mainly transverse fracture of the distal phalanx. Reviewed by: Riya Nelson MD on 06/20/2020 4:01 PM PDT Approved by: Riya Nelson MD on 06/20/2020 4:01 PM PDT Station ID: [id number]
== END 2020-06-20 15:45 | disposition home or self-care (01) ==
LOC: ED 14:12
DX: S92.424A Nondisplaced fracture of distal phalanx of right great toe, initial encounter for closed fracture (principal); S90.411A Abrasion, right great toe, initial encounter; S90.211A Contusion of right great toe with damage to nail, initial encounter; W20.8XXA Other cause of strike by thrown, projected or falling object, initial encounter; Y92.009 Unspecified place in unspecified non-institutional (private) residence as the place of occurrence of the external cause; I10 Essential (primary) hypertension; Z79.82 Long term (current) use of aspirin
CPT/HCPCS: 99282; 99283

== ENCOUNTER 2020-11-25 07:44 | Outpatient (CLI) | payer MEDICARE ==
[2020-11-25 08:38] LABS: ALBUMIN 4.2 g/dL (3.2-5.5); ALBUMIN/GLOBULIN RATIO 1.7 (1.0-2.2); ALKALINE PHOSPHATASE 78 IU/L (42-121); ALT ALANINE AMINOTRANSFERASE 24 IU/L (10-60); AST ASPARTATE AMINOTRANSFERASE 21 IU/L (10-42); BILIRUBIN,TOTAL 1.6 mg/dL (0.2-1.0); BUN - BLOOD UREA NITROGEN 16 mg/dL (6-20); CALCIUM 9.6 mg/dL (8.5-10.3); CARBON DIOXIDE - CO2 28 mmol/L (21-32); CHLORIDE 100 mmol/L (101-111); CHOL/HDL RATIO 2.3 (<4.4); CHOLESTEROL 169 mg/dL; CREATININE 0.7 mg/dL (0.4-1.0); GLUCOSE 107 mg/dL (70-100); HDL CHOLESTEROL 73 mg/dL; LDL CHOLESTEROL,CALCULATED 76 mg/dL; TOTAL PROTEIN 6.7 g/dL (6.7-8.2); VLDL CHOLESTEROL 20 mg/dL
[2020-11-25 08:50] LABS: THYROID STIMULATING HORMONE 2.3 uIU/mL (0.34-5.60)
[2020-11-25 08:52] LABS: FREE T3 2.9 pg/mL (2.5-3.9)
[2020-11-25 08:53] LABS: FREE T4 (FREE THYROXINE) 0.96 ng/dL (0.58-1.64)
[2020-11-25 11:49] LABS: HEMOGLOBIN A1c% 5.5 % (4.27-6.07)
== END 2020-11-25 07:45 | disposition home or self-care (01) ==
LOC: LAB 07:44
PROVIDERS: ATTEND Nurse Practitioner
DX: E78.2 Mixed hyperlipidemia (principal); I10 Essential (primary) hypertension; Z79.899 Other long term (current) drug therapy
CPT/HCPCS: 36415; 80053; 80061; 82043; 82570; 83036; 83721; 84439; 84443; 84481

== ENCOUNTER 2020-11-25 13:47 | Outpatient (CLI) | payer MEDICARE ==
[2020-11-25 14:09] LABS: CREATININE,URINE 28.9 mg/dL; MICROALBUM/CREATININE RATIO,UR 17.3 ug/mg (<30.0); MICROALBUMIN,URINE 0.5 mg/dL (0-300.0)
== END 2020-11-25 13:48 | disposition home or self-care (01) ==
LOC: LAB 13:47
PROVIDERS: ATTEND Nurse Practitioner
DX: E78.2 Mixed hyperlipidemia (principal); I10 Essential (primary) hypertension; Z79.899 Other long term (current) drug therapy; Z12.11 Encounter for screening for malignant neoplasm of colon
CPT/HCPCS: 82043; 82274; 82570

== ENCOUNTER 2021-01-12 12:39 | Outpatient (CLI) | payer MEDICARE ==
--- NOTE | 2021-01-12 17:13 | DEXA Report ---
PROCEDURE: Dexa Spine and/or Hip INDICATIONS: MENOPAUSAL, OSTEOPENIA TECHNIQUE: Dual energy x-ray absorptiometry (DXA) was performed on a [employer] System. Regions measur ed are the AP Spine, femoral neck, and if needed forearm. COMPARISON: None. FINDINGS: Lumbar Spine: Bone Mineral Density 1.025 g/cm/cm,T score -1.2, compared to -1.1 Left Hip: Bone Mineral Density 0.876 g/cm/cm,T score -1.0, compared to -1.3 Left Femoral Neck: Bone Mineral Density 0.859 g/cm/cm, T score -1.3, compared to -1.2 (T score greater or equal to -1.0: NORMAL) (T score from -1.1 to -2.4: OSTEOPENIA) (T score less than or equal to -2.5 to: OSTEOPOROSIS) Impression: Mild osteopenia within the lumbar spine, left hip and femoral neck, relatively stable com pared to prior exam. Patients with diagnosis of osteoporosis or osteopenia should have regular bone mineral density assess ment. For those eligible for Medicare, routine testing is allowed once every 2 years. Testing frequ ency can be increased for patients who have rapidly progressing disease or for those who are receivin g medical therapy to restore bone mass. Reviewed by: Lenka Hernandez MD on 01/12/2021 5:11 PM PDT Approved by: Lenka Hernandez MD on 01/12/2021 5:11 PM PDT Station ID: [id number]
== END 2021-01-12 12:40 | disposition home or self-care (01) ==
LOC: DI 12:39
PROVIDERS: ATTEND Nurse Practitioner
DX: N95.8 Other specified menopausal and perimenopausal disorders (principal); M85.89 Other specified disorders of bone density and structure, multiple sites

== ENCOUNTER 2021-02-19 09:30 | Outpatient (CLI) | payer MEDICARE ==
--- NOTE | 2021-02-22 11:36 | Mammography Report ---
BILATERAL DIGITAL SCREENING MAMMOGRAM 3D/2D: 02/19/2021 CLINICAL: Routine screening. Comparison is made to exams dated: 12/04/2019 mammogram, 11/01/2019 mammogram, 06/28/2017 mammogram, and 04/17/2015 mammogram - [facility]. The tissue of both breasts is heterogeneously de nse. This may lower the sensitivity of mammography. There is a possible 6 mm oval equal density asymmetry in the left breast middle depth lateral region seen on the craniocaudal view only. This is more prominent. No other significant masses, calcifications, or other findings are seen in either breast. IMPRESSION: INCOMPLETE: NEEDS ADDITIONAL IMAGING EVALUATION The possible 6 mm oval equal density asymmetry in the left breast is indeterminate. Additional views with possible ultrasound are recommended. This exam was interpreted at Station ID: [id number]. NOTE: For mammograms, a report in lay terms will be sent to the patient. Approximately 15% of breast malignancies will not be visualized mammographically. In the management of a palpable breast mass, a negative mammogram must not discourage biopsy of a clinically suspicious lesion. Electronically Signed By: Riay reed/penrad:02/19/2021 13:57:48 ACR BI-RADS Category 0: Incomplete 3340F PARENCHYMAL PATTERN: (D) - The breast(s) demonstrate(s) heterogeneously dense fibroglandular humberto lawler. BI-RADS CATEGORY: (0) - 0 Mammo and [place] [id number] Immediate follow-up LATERALITY: (B)
== END 2021-02-19 09:31 | disposition home or self-care (01) ==
LOC: DI 09:30
PROVIDERS: ATTEND Nurse Practitioner
DX: Z12.31 Encounter for screening mammogram for malignant neoplasm of breast (principal); R92.8 Other abnormal and inconclusive findings on diagnostic imaging of breast

== ENCOUNTER 2021-03-01 20:12 | Outpatient (CLI) | payer MEDICARE | END 2021-03-01 20:13 | disposition home or self-care (01) | LOC: COV 20:12 | PROVIDERS: ATTEND Surgery | DX: Z01.812 Encounter for preprocedural laboratory examination (principal); K21.9 Gastro-esophageal reflux disease without esophagitis; Z86.010 Personal history of colon polyps; Z20.822 Contact with and (suspected) exposure to COVID-19 ==

== ENCOUNTER 2021-03-03 07:08 | Day surgery (SDC) | payer MEDICARE ==
--- OUTSIDE RECORDS SUMMARY | 2021-03-03 07:10 | EXTERNAL MEDICAL SUMMARY RPT | Continuity of Care Document ---
:1950 Demographics Phone Unavailable Preferred Language Tajik Marital Status Unknown Baptism Affiliation Unknown Race Unknown Ethnic Group Unknown Author Organization [place] Address [address] [phone] Phone Care Team Providers Name Role Phone Brown Unavailable Unavailable Medications date description facility 20210119 Meclizine Hydrochloride 25 MG Oral Tabl et [facility] 20210119 atorvastatin 40 MG Oral Tablet [facility] 20210119 Hydrochlorothiazide 25 MG / Triamterene 37.5 MG [facility] Tablet 20210119 Omeprazole 40 MG Enteric Coated Capsule [facility] Problems date description facility 20210122 Other specified noninflammatory disorde rs of [facility] Procedures date description facility 20210119 [facility] 20210117 [facility] 20210114 [facility] Vital Signs date measurement value source 20210119 weight_standard 62.31 lb 20210119 weight_metric 28.26 kg 20210119 temperature_standard 96.8 F 20210119 temperature_metric 36 C 20210119 height_standard 66 in 20210119 height_metric 167.64 cm 20210119 heart_rate 70 /min 20210119 BP_systolic 142 mm[Hg] 20210119 BP_diastolic 72 mm[Hg] 20210119 BMI 22.1 kg/m2
[2021-03-03] MEDS ORDERED: LACTATED RINGERS 1,000 ML IV ONE (07:28)
[2021-03-03] MEDS ORDERED: MIDAZOLAM 2 MG/2 ML VIAL ONE ×2 (08:22)
[2021-03-03] MEDS ORDERED: fentaNYL 250 MCG/5 ML VIAL ONE (08:22)
[2021-03-03] MEDS ORDERED: LIDO GARGLE 30 ML BOTTLE ONE (08:31)
[2021-03-03] MEDS ORDERED: LIDO GARGLE 30 ML BOTTLE PO ONE (08:40)
[2021-03-03] MEDS ORDERED: BENZOCAINE/TETRACAINE/BUTAMBEN 20 GM TOP ONE (08:40)
[2021-03-03] MEDS ORDERED: LACTATED RINGERS 500 ML IV ONE (09:24)
[2021-03-03 09:55] VITALS: BP 121/86
== END 2021-03-03 07:09 | disposition home or self-care (01) ==
LOC: SDS 07:08
PROVIDERS: ATTEND Surgery
PROC: 0DBP8ZZ Excision of Rectum, Via Natural or Artificial Opening Endoscopic (ICD-10-PCS; principal; 2021-03-03 08:15)
PROC: 0DB68ZX Excision of Stomach, Via Natural or Artificial Opening Endoscopic, Diagnostic (ICD-10-PCS; 2021-03-03 08:15)
DX: Z12.11 Encounter for screening for malignant neoplasm of colon (principal); K29.51 Unspecified chronic gastritis with bleeding; K62.1 Rectal polyp; K21.9 Gastro-esophageal reflux disease without esophagitis; K64.8 Other hemorrhoids; I10 Essential (primary) hypertension; E78.5 Hyperlipidemia, unspecified; Z86.010 Personal history of colon polyps; Z79.82 Long term (current) use of aspirin; Z79.899 Other long term (current) drug therapy; Z87.891 Personal history of nicotine dependence
CPT/HCPCS: 43239; 45380; A9270; J3010; J7120

== ENCOUNTER 2021-03-15 10:25 | Outpatient (CLI) | payer MEDICARE ==
--- NOTE | 2021-03-16 12:18 | Mammography Report ---
UNILATERAL LEFT DIGITAL DIAGNOSTIC MAMMOGRAM 3D/2D: 03/15/2021 CLINICAL: Patient returns today to evaluate an asymmetry in left breast. Comparison is made to exams dated: 02/19/2021 mammogram, 12/04/2019 mammogram, 11/01/2019 mammogram, 06/28 mammogram, and 04/17/2015 mammogram - [facility]. The tissue of left breast i s heterogeneously dense. This may lower the sensitivity of mammography. There is an oval low density focal asymmetry with an obscured, indistinct, and circumscribed margin i n the left breast at 5 o'clock posterior depth. This is less prominent on additional views. No other significant masses or calcifications are seen in the breast. IMPRESSION: INCOMPLETE: NEEDS ADDITIONAL IMAGING EVALUATION The oval low density focal asymmetry in the left breast is indeterminate. An ultrasound is recommend ed. Ultrasound will be performed immediately following the current exam. This exam was interpreted at Station ID: [id number]. NOTE: For mammograms, a report in lay terms will be sent to the patient. Approximately 15% of breast malignancies will not be visualized mammographically. In the management of a palpable breast mass, a negative mammogram must not discourage biopsy of a clinically suspicious lesion. Electronically Signed By: Ga Cobb M.D. ddp/:03/15/2021 11:38:02 ACR BI-RADS Category 0: Incomplete 3340F PARENCHYMAL PATTERN: (D) - The breast(s) demonstrate(s) heterogeneously dense fibroglandular parerinny ma. BI-RADS CATEGORY: (0) - 0 Ultrasound [id number] Immediate follow-up LATERALITY: (B)
--- NOTE | 2021-03-16 12:18 | Ultrasound Report ---
LIMITED ULTRASOUND OF LEFT BREAST: 03/15/2021 CLINICAL: Patient returns today to evaluate a focal asymmetry in the left breast. Comparison is made to exams dated: 03/15/2021 mammogram, 02/19/2021 mammogram, 12/04/2019 mammogram, 11/01 mammogram, 06/28/2017 mammogram, and 04/17/2015 mammogram - [facility]. Color flow and real-time ultrasound of the left breast 4 o'clock region were performed on the areas of interest. Dooley scale images of the real-time examination were reviewed. There is a 0.6 cm x 0.4 cm x 0.4 cm oval cyst in the left breast at 4 o'clock middle depth. This ova l cyst is hypoechoic with internal echoes and posterior acoustic enhancement. This correlates with m ammography findings. Color flow imaging demonstrates that there is no vascularity present. IMPRESSION: PROBABLY BENIGN The 0.6 cm x 0.4 cm x 0.4 cm oval cyst in the left breast is consistent with a complicated cyst and i s probably benign. Follow-up mammogram and ultrasound in 6 months are recommended. A follow-up mammogram and an ultrasound in 6 months are recommended to demonstrate stability. This exam was interpreted at Station ID: [id number]. Electronically Signed By: Ga Cobb M.D. ddevans/:03/15/2021 11:39:08 Ultrasound BI-RADS: 3 Probably benign BI-RADS CATEGORY: (3) - 3 Mammo and [place] [id number] 6 month follow-up LATERALITY: (B)
== END 2021-03-15 10:26 | disposition home or self-care (01) ==
LOC: DI 10:25
PROVIDERS: ATTEND Nurse Practitioner
DX: N60.02 Solitary cyst of left breast (principal)